=== PATIENT | male | born 1955 | race Caucasian/White ===

== ENCOUNTER 2018-04-19 11:02 | Inpatient (IN) | payer MEDICAID ==
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
[2018-04-19] MEDS ORDERED: IPRATROPIUM/ALBUTEROL 3 ML DEYVIAL IH ONE (11:49)
[2018-04-19] MEDS ORDERED: OSELTAMIVIR PHOSPHATE 75 MG CAP PO ONE (12:04)
[2018-04-19] MEDS ORDERED: NS 1,000 ML IV ONE (12:40)
[2018-04-19] MEDS ORDERED: ONDANSETRON 4 MG/2 ML VIAL IVP PRN (14:01)
[2018-04-19] MEDS ORDERED: ONDANSETRON DISINTEGRATING 4 MG TAB PO PRN (14:01)
[2018-04-19] MEDS ORDERED: ACETAMINOPHEN 325 MG TAB PO PRN (14:01)
--- NOTE | 2018-04-19 14:26 | PDGENHP ---
<Yolette Shrestha - Last Filed: 04/19/18 14:29> History and Physical - Chief Complaint Shortness of breath, productive cough - History of Present Illness This is a 63 y/o patient who was evaluated at urgent care for 5 days worth of worsening productive cough, shortness of breath, fevers and chills. He produces greenish and yellowish sputum. He does have a history of COPD and does not need supplemental oxygen however he does have it available to him should he ever need it. He denies nausea, vomiting, chest pains, and palpitations. He tested positive for Influenza A; he is being admitted for monitoring and treatment of Influenza and increased shortness of breath. Past Medical History 1. COPD (not oxygen dependent) 2. Bilateral inguinal hernias Past Surgical History 1. Left hernia repair. Was scheduled for right hernia repair today but needed to cancel Social 1. Unable to work because of COPD 2. Currently living with friends in [facility] 3. Denies illicit drug use. Drinks 2 beers/week. Stopped smoking cigarettes 4 days ago "for good." Prior to that, he smoked about 10 cigarettes/day. History Information - Allergies/Home Medication List Allergies/Adverse Reactions: Sulfa (Sulfonamide Antibiotics) Allergy (Verified 04/19/18 12:05) Home Medications: Albuterol [Proventil Inhaler HFA (*)] 1 - 2 puffs IH Q4H PRN 04/19/18 [Last Taken 04/19/18] Fluticasone/Salmeter 500/50Mcg [Advair 500/50 (*)] 1 puffs IH BID 04/19/18 [ Last Taken 04/18/18 20:00] I have personally reviewed and updated: family history, medical history, social history, surgical history Past Medical History: See HPI list - Surgical History Additional surgical history: See HPI list - Family History Positive for: non-pertinent - Social History Smoking Status: Heavy smoker Alcohol Use: Rarely Drug Use: None Review of Systems Review of Systems: ROS: 10pt was reviewed & negative except for what was stated in HPI & below Constitutional: Reports: chills, fever, malaise EENMT: Reports: no symptoms Cardiac: Reports: other Respiratory: Reports: cough, shortness of breath Gastrointestinal: Reports: no symptoms Genitourinary: Reports: no symptoms Muscolosketal: Reports: no symptoms Skin: Reports: no symptoms Neurological: Reports: no symptoms Hematologic/Lymphatic: Reports: no symptoms Immunologic/Allergy: Reports: other (Sulfa) Physical Exam Physical Exam: Lab data and imaging reviewed CXR: suspect lower lobe infiltrates, right greater than left. COPD/emphysema with chronic pulmonary arterial hypertension. WBC: 8.6 RBC/H/H: 5.25/17.7/51.2 PLT: 220 Na: 132 K: 4.0 BUN/Creatinine: 6/0.7 Lactic acid: 1.2 Temp Pulse Resp BP Pulse Ox 37.4 C 103 H 14 152/109 H 94 04/19/18 13:59 04/19/18 13:59 04/19/18 13:59 04/19/18 13:59 04/19/18 13:59 O2 (L/minute) 2 Constitutional: no apparent distress, appears nourished, not in pain Eyes: PERRL, anicteric sclera, EOMI Ears, Nose, Mouth, Throat: moist mucous membranes, hearing normal, ears appear normal, no oral mucosal ulcers Cardiovascular: regular rate and rhythym, no murmur, rub, or gallop, tachycardia , No edema Peripheral Pulses: 2+: dorsalis-pedis (R) (Radial 2+), dorsalis-pedis (L) ( Radial 2+) Respiratory: rhonchi (Bilateral lower lobes) Gastrointestinal: normoactive bowel sounds, soft, non-tender abdomen, no palpable masses Genitourinary: no bladder fullness, no bladder tenderness Skin: warm, normal color, no rashes or abrasions, no fluctuance, no induration, No mottled Musculoskeletal: full muscle strength, no muscle tenderness, normal joint ROM, no joint effusions Neurologic: AAOx3, sensation intact bilaterally, CN II-XII Intact Psychiatric: interacting appropriately, not anxious, not encephalopathic, thought process linear Lymph, Heme, Immunologic: no cervical LAD, no supraclavicular LAD Lab Data & Imaging Review POC Sodium 132 mEq/L (135-145) L 04/19/18 11:42 POC Potassium 4.0 mEq/L (3.3-5.0) 04/19/18 11:42 POC Chloride 95.0 mEq/L (97-110) L 04/19/18 11:42 POC Total CO2 25 mEq/L (22-31) 04/19/18 11:42 POC BUN 6 mg/dL (7-23) L 04/19/18 11:42 POC Creatinine 0.7 mg/dL (0.7-1.3) 04/19/18 11:42 POC Glucose 108 mg/dL (70-100) H 04/19/18 11:42 POC Lactic Acid Garrett 1.2 mmol/L (0.7-2.1) 04/19/18 11:43 POC Calcium 9.3 mg/dL (8.5-10.4) 04/19/18 11:42 POC Total Bilirubin 1.1 mg/dL (0.1-1.4) 04/19/18 11:42 POC AST 27 IU/L (17-59) 04/19/18 11:42 POC ALT 24 IU/L (21-72) 04/19/18 11:42 POC Alk Phosphatase 68 IU/L (38-126) 04/19/18 11:42 POC Total Protein 7.1 g/dL (6.3-8.2) 04/19/18 11:42 POC Albumin 3.7 g/dL (3.5-5.0) 04/19/18 11:42 Assessment & Plan Plan: 63 y/o male presenting with worsening shortness of breath and productive cough tests positive for influenza A. 1. Influenza A: Pt reports his friends (who he is currently living with) are sick with either cold or flu symptoms -Droplet precautions -Tamiflu was initiated at urgent care and he received one dose. He will receive another dose later today and continue BID for the next 5 days. 2. Acute COPD exacerbation on chronic COPD: suspect influenza and chronic cigarette use triggered an exacerbation. He is tachycardic and hypoxemic requiring 2L NC at the moment -Received duoneb treatment at urgent care; he will continue to receive scheduled duoneb treatments 3. Viral pneumonitis: CXR show infiltrates, most likely viral considering he is currently afebrile, lactic acid 1.2 and WBC 8.6. -Checking procalcitonin; if elevated, will initiate antibiotics -Will check CBC/BMP tomorrow 4. Tobacco cessation: counseled pt on cessation. He reportedly already has 4 days ago "for good," but I reiterated the importance to him. 5. COPD: will hold home inhalers for now. He will be receiving scheduled duoneb treatments. Diet: Regular VTE ppx: Lovenox subq Code: Full Dispo: admit to obs <Zackary Howard - Last Filed: 04/19/18 16:47> History and Physical - History of Present Illness Review of Systems Review of Systems: Physical Exam Physical Exam: Temp Pulse Resp BP Pulse Ox 37.4 C 110 H 14 157/108 H 92 04/19/18 16:00 04/19/18 16:00 04/19/18 16:00 04/19/18 16:00 04/19/18 16:00 O2 (L/minute) 2 Lab Data & Imaging Review POC Sodium 132 mEq/L (135-145) L 04/19/18 11:42 POC Potassium 4.0 mEq/L (3.3-5.0) 04/19/18 11:42 POC Chloride 95.0 mEq/L (97-110) L 04/19/18 11:42 POC Total CO2 25 mEq/L (22-31) 04/19/18 11:42 POC BUN 6 mg/dL (7-23) L 04/19/18 11:42 POC Creatinine 0.7 mg/dL (0.7-1.3) 04/19/18 11:42 POC Glucose 108 mg/dL (70-100) H 04/19/18 11:42 POC Lactic Acid Garrett 1.2 mmol/L (0.7-2.1) 04/19/18 11:43 POC Calcium 9.3 mg/dL (8.5-10.4) 04/19/18 11:42 POC Total Bilirubin 1.1 mg/dL (0.1-1.4) 04/19/18 11:42 POC AST 27 IU/L (17-59) 04/19/18 11:42 POC ALT 24 IU/L (21-72) 04/19/18 11:42 POC Alk Phosphatase 68 IU/L (38-126) 04/19/18 11:42 POC Total Protein 7.1 g/dL (6.3-8.2) 04/19/18 11:42 POC Albumin 3.7 g/dL (3.5-5.0) 04/19/18 11:42 Assessment & Plan Assessment: Chronic obstructive pulmonary disease with acute exacerbation (Acute) Influenza A (Acute) Plan: I have reviewed the chart and personally examined the patient. Discussed with Dunia Shrestha NP and agree with her plan as outlined above. Please see separate note for further details.
[2018-04-19] MEDS: IPRATROPIUM/ALBUTEROL 3 ML DEYVIAL IH SCH ×2 (15:25→21:26)
[2018-04-19] MEDS ORDERED: NS 1,000 ML IV SCH (16:45)
[2018-04-19] MEDS: predniSONE 20 MG TAB PO SCH (16:50)
[2018-04-19] MEDS: OSELTAMIVIR PHOSPHATE 75 MG CAP PO SCH (16:50)
--- NOTE | 2018-04-19 16:54 | HOSPPROG ---
Hospitalist Progress Note Assessment/Plan: Case discussed with Dunia Shrestha ADVISOR [employer] and I agree with her plan with the following exceptions: Briefly, 63yo M smoker here with 5 days of progressive shortness of breath, cough, chills, myalgias found to be hypoxic and influenza A +. Transferred from [facility] for further care. Symptoms started last Thursday. Typically doesn't use oxygen. Smokes 1/2 pack cigarettes/day. Multiple sick contacts. Reviewed labs, notable for Na 132. CXR shows mild bibasilar infiltrates. Exam notable for wheezing with prolonged expiratory phase. Plan: 1. Acute exacerbation of COPD: Viral trigger - Prednisone 40mg qd, scheduled duonebs 2. Acute hypoxemic respiratory insufficiency: Requiring 2L NC - Wean as able 3. Influenza A infection - Tamiflu x5 days (will give despite being out of 2 day "window") 4. Hyponatremia: Hypovolemic - Give additional 1L NS 5. Tobacco use: Encouraged cessation VTE ppx: LMWH Dispo: Admit under observation Objective: Vital Signs Temp Pulse Resp BP Pulse Ox 37.4 C 110 H 14 157/108 H 92 04/19/18 16:00 04/19/18 16:00 04/19/18 16:00 04/19/18 16:00 04/19/18 16:00 04/18/18 04/19/18 04/20/18 05:59 05:59 05:59 Intake Total 1240 Balance 1240 ICD10 Worksheet Patient Problems: Problems Problem Status Onset Chronic obstructive pulmonary disease with acute exacerbation Acute Influenza A Acute
[2018-04-20] MEDS: IPRATROPIUM/ALBUTEROL 3 ML DEYVIAL IH SCH ×4 (05:55→20:10)
[2018-04-20] MEDS ORDERED: BENZONATATE 100 MG CAP PO PRN (08:49)
--- NOTE | 2018-04-20 08:52 | HOSPPROG ---
Hospitalist Progress Note Assessment/Plan: 63yo M smoker here with 5 days of progressive shortness of breath, cough, chills , myalgias found to be hypoxic and influenza A +. 1. Acute exacerbation of COPD: Viral trigger - Prednisone 40mg qd, continue scheduled duonebs 2. Acute hypoxemic respiratory insufficiency: Requiring 2-3L NC, still with desats - Wean as able, likely will need home O2 at discharge 3. Influenza A infection - Tamiflu x5 days (will give despite being out of 2 day "window") 4. Hyponatremia: Hypovolemic, improving - Recheck tomorrow 5. Tobacco use: Encouraged cessation 6. Polycythemia: Hgb 17-18. Suspect r/t chronic hypoxemia from smoking but will check bone marrow etiology - Check JAK2 mutation VTE ppx: LMWH Dispo: Switch to inpatient, still hypoxic and symptomatic and unsafe for dc. Possible dc tomorrow with supplemental O2 Subjective: Lots of coughing this AM. Still with some labored breathing, especially with walking. O2 levels intermittently in 80s while on O2. Objective: Vital Signs Temp Pulse Resp BP Pulse Ox 36.4 C 93 18 159/108 H 91 L 04/20/18 08:00 04/20/18 08:00 04/20/18 08:00 04/20/18 08:00 04/20/18 08:00 Laboratory Results 04/20/18 06:00 04/20/18 06:00 04/19/18 04/20/18 04/21/18 05:59 05:59 05:59 Intake Total 2039 Output Total 2850 300 Balance -810 -300 - Physical Exam Constitutional: no apparent distress, appears nourished, not in pain Eyes: PERRL, anicteric sclera, EOMI Ears, Nose, Mouth, Throat: moist mucous membranes, hearing normal, ears appear normal, no oral mucosal ulcers Cardiovascular: no murmur, rub, or gallop, tachycardia, No edema Respiratory: no respiratory distress, reduced air movement, expiratory wheeze, rhonchi, No inspiratory crackles Gastrointestinal: normoactive bowel sounds, soft, non-tender abdomen, no palpable masses Genitourinary: no bladder fullness, no bladder tenderness, no renal bruits Skin: no rashes or abrasions, no fluctuance, no induration Musculoskeletal: full muscle strength, no muscle tenderness, normal joint ROM Neurologic: AAOx3, sensation intact bilaterally Psychiatric: interacting appropriately, not anxious, not encephalopathic, thought process linear ICD10 Worksheet Patient Problems: Problems Problem Status Onset Chronic obstructive pulmonary disease with acute exacerbation Acute Influenza A Acute
[2018-04-20] MEDS: OSELTAMIVIR PHOSPHATE 75 MG CAP PO SCH ×2 (10:17→18:21)
[2018-04-20] MEDS: guaiFENesin 600 MG TAB.ER PO SCH ×2 (10:17→20:44)
[2018-04-20] MEDS: ENOXAPARIN 40 MG/0.4 ML SYR SC SCH (10:17)
[2018-04-20] MEDS: predniSONE 20 MG TAB PO SCH (10:17)
--- NOTE | 2018-04-20 15:10 | PDMN ---
Medical Necessity Medical necessity: [facility] [place] M100 COPD: 63 yo w/ cough/sob/fever/chills. Workup reveals +influenza A w/ acute COPD exacerbation and viral pneumonitis. Initially OBS for monitoring/tx but pt cont w/ s/sx - labored breathing, tachycardic, remains on O2 requiring additional MN. Cont IVF, nebs, steroids. Hx COPD. Change to IP status 04/20/18@1433 per MD order
--- NOTE | 2018-04-20 16:57 | ASMTCMCOM ---
CM Note CM Note Notes: Discussed case with MD who feels patient needs at least another day in house before d/c. Met with patient to discuss any possible dispo needs. Patient states he's been staying with some friends in [place] and plans to stay there again upon d/c. He has a PCP in [place] (where he formerly lived). CM encouraged patient to establish care with a PCP here. Information for [facility] PCPs provided and added to discharge plan in [facility]. Referral sent to [facility] Samara Orellana was able to follow-up today and provide information. Plan: Anticipate d/c to friend's home when medically stable. May need assistance with bus ride to [place]. Date Signed: 04/20/2018 04:57 PM Electronically Signed By:Lara Lou RN
[2018-04-21] MEDS: IPRATROPIUM/ALBUTEROL 3 ML DEYVIAL IH SCH (05:39)
[2018-04-21] MEDS: OSELTAMIVIR PHOSPHATE 75 MG CAP PO SCH (08:02)
[2018-04-21] MEDS: predniSONE 20 MG TAB PO SCH (08:02)
[2018-04-21] MEDS: guaiFENesin 600 MG TAB.ER PO SCH (08:02)
[2018-04-21] MEDS: ENOXAPARIN 40 MG/0.4 ML SYR SC SCH (08:03)
[2018-04-21 08:14] VITALS: BP 147/99
--- NOTE | 2018-04-21 08:55 | PDHOMEO2F ---
Home Oxygen Face to Face Home Orders: I certify that a physician or a nurse practitioner or physician's social service assistant has had a [id number] encounter with this patient on the date of this order due to the diagnosis listed, which relates to the primary reason the patient requires home oxygen. Alternative treatments have been tried, or considered, and deemed ineffective. It is anticipated that supplemental oxygen will result in improvement with treatment. Home oxygen qualifying diagnosis: respiratory failure with hypoxia SpO2 on room air (%): 87 Frequency of home oxygen needed: continuous Home oxygen liters per minute: 2 Home oxygen delivery device: nasal cannula Concentrator: Yes E-tanks for mobility and back up: Yes If ordering portable O2, is the patient mobile in the home?: Yes I certify that, based on these findings, the home oxygen is medically necessary for this patient for the following length of time. Length of time home oxygen needed: 3 months
--- NOTE | 2018-04-21 09:41 | PDDCSUM ---
Discharge Summary Discharge Summary: Date of Admission: 04/19/2018 Date of Discharge: 04/21/2018 Studies: 1. CXR Discharge Diagnoses: 1. Acute COPD exacerbation, due to 2. Influenza A infection, complicated by 3. Acute hypoxemic respiratory failure 4. Hypovolemic hyponatremia 5. Ongoing tobacco use 6. Polycythemia 7. Homelessness Brief Hospital Course: 63yo M smoker here with 5 days of progressive shortness of breath, cough, chills , myalgias found to be hypoxic and wheezing. Influenza A testing was positive. He was treated with bronchodilators, steroids, and tamiflu with symptomatic improvement. He was requiring supplemental oxygen and is discharged on 2L/min continuously. I strongly advised that he quit smoking, and he seems motivated. He has equipment for a nebulizer at home and is on albuterol and advair for his COPD. His hematocrit was elevated when he came in, and I suspect he is chronically hypoxic. Medications: Please refer to EMR for complete list. Prescriptions for the following were sent to his pharmacy: 1. Prednisone 40mg QD x4 more days 2. Tamiflu 75mg BID x3 more days 3. Mucinex and tessalon pearls PRN Follow Up Plan: 1. JAK2 mutation pending at discharge 2. Needs to establish with PCP locally (currently lives in [place] with friend but has PCP in [place]). They should assess ongoing need for supplemental oxygen. Physical Exam: Vitals reviewed, afebrile. Alert and oriented, RRR without m/r/g , lungs with improving aeration and minimal wheezing, no respiratory distress, abdomen soft and nt, no leg edema, no rashes.
== END 2018-04-21 10:44 | disposition home or self-care (01) | DRG 140 ==
LOC: CED 11:02 → CEDHOLD 12:07 → F3E 13:52 → OBSVTOIN 04-20 14:33
PROVIDERS: ADMIT Internal Medicine; ATTEND Internal Medicine
DX: J44.1 Chronic obstructive pulmonary disease with (acute) exacerbation (principal); J10.1 Influenza due to other identified influenza virus with other respiratory manifestations; J96.01 Acute respiratory failure with hypoxia; E87.1 Hypo-osmolality and hyponatremia; E86.1 Hypovolemia; D75.1 Secondary polycythemia; Z72.0 Tobacco use; Z59.0 Homelessness; K40.90 Unilateral inguinal hernia, without obstruction or gangrene, not specified as recurrent
CPT/HCPCS: 71046-PO; 80053-ER; 81439-90; 83605-ER; G0378; J1650; J7512

== ENCOUNTER 2018-07-20 13:39 | Inpatient (IN) | payer MEDICAID ==
[2018-07-20] MEDS ORDERED: LR 1,000 ML IV ONE (13:47)
[2018-07-20] MEDS ORDERED: BUPIVACAINE/EPI 0.25% 30 ML SDV ONE (13:52)
[2018-07-20] MEDS ORDERED: LIDO/EPI 1% **Not for Epidural 20 ML MDV ONE (13:52)
--- NOTE | 2018-07-20 14:51 | PDHPUP ---
History & Physical Update H&P update statement: This history and physical update is based on an assessment of the patient which was completed after admission or registration (within 24 hours), but prior to the surgery/procedure. H&P update: H&P reviewed & patient examined, no change in patient's condition since H&P completed
--- NOTE | 2018-07-20 14:54 | POSTOPPROG ---
Post Op Note Date of Operation: 07/20/18 Surgeon: Yo Rosales Chief Operations Officer: Vanna Ulloa PA-C Anesthesia: IV Sedation Pre-op Diagnosis: Right inguinal hernia Post-op Diagnosis: same Procedure: Open right inguinal herniorrhaphy Inf/Abcess present in the surg proc area at time of surgery?: No EBL: Minimal Complications: no immediate
[2018-07-20] MEDS ORDERED: ASPIRIN 325 MG TAB PO ONE (15:10)
[2018-07-20] MEDS ORDERED: ASPIRIN 325 MG TAB ONE (15:11)
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
--- NOTE | 2018-07-20 15:57 | CPEKG ---
Test Reason : OPEN Blood Pressure : / mmHG Vent. Rate : 092 BPM Atrial Rate : 092 BPM P-R Int : 134 ms QRS Dur : 094 ms QT Int : 420 ms P-R-T Axes : 079 066 058 degrees QTc Int : 520 ms Sinus rhythm Abnormal T, consider ischemia, anterior leads Prolonged QT interval Confirmed by Talon Nieto ([id number]) on 07/20/2018 3:57:05 PM Referred By: CLEO SIMON Confirmed By:Talon Nieto
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
[2018-07-20 16:13] LABS: PLATELET COUNT 159 10^3/uL (150-400)
--- NOTE | 2018-07-20 16:53 | CPEKG ---
Test Reason : OPEN Blood Pressure : / mmHG Vent. Rate : 096 BPM Atrial Rate : 096 BPM P-R Int : 130 ms QRS Dur : 095 ms QT Int : 409 ms P-R-T Axes : 077 075 -46 degrees QTc Int : 517 ms Sinus rhythm Abnormal T, consider ischemia, anterior leads Prolonged QT interval Confirmed by Talon Nieto ([id number]) on 07/20/2018 4:53:15 PM Referred By: Talon Nieto Confirmed By:Talon Nieto
[2018-07-20] MEDS ORDERED: ONDANSETRON 4 MG/2 ML VIAL IVP PRN (17:51)
[2018-07-20] MEDS ORDERED: ACETAMINOPHEN 325 MG TAB PO PRN (17:51)
[2018-07-20] MEDS ORDERED: ONDANSETRON DISINTEGRATING 4 MG TAB PO PRN (17:51)
[2018-07-20] MEDS ORDERED: LORazepam 2 MG/ML INJ IVP PRN (17:53)
[2018-07-20] MEDS ORDERED: FLUMAZENIL 0.5 MG/5 ML MDV IVP PRN (17:53)
--- NOTE | 2018-07-20 18:05 | PDGENHP ---
History and Physical - Chief Complaint EKG changes, hypertension - History of Present Illness 63 y/o male w/hx of alcohol, illicit and tobacco abuse presented for an elective open hernia repair however during pre-op, his BP was elevated at 170 systolic and subsequently an EKG was performed w/no others on records to compare indicating anterior T-wave inversions but was asymptomatic. He reported anxiety attacks leading up to surgery and felt anxious today. Surgery was cancelled and he was transferred to ED for further evaluation. He tells me approximately 5 days ago, he was short of breath to the point that it woke him up and he felt diaphoretic. No CP, palpitations, nausea, vomiting, radiating pain, HOWELL. Symptoms dissipated after 10 minutes. Occurred twice within the same night. No hx of cardiac related issues, no family hx. He does drink heavily w/reported "couple of beers and a couple of shooters" per day, smokes 1/ 2 pack of cigarettes weekly, and smokes crystal methamphetamine monthly w/ friends. He is currently homeless and staying w/friends in [place]. He is being admitted for further work-up, treatment and monitoring. History Information - Allergies/Home Medication List Allergies/Adverse Reactions: Sulfa (Sulfonamide Antibiotics) Allergy (Verified 07/20/18 15:29) Rash Home Medications: Albuterol [Proventil Inhaler HFA (*)] 1 - 2 puffs IH Q4H PRN 04/19/18 [Last Taken 04/19/18] Fluticasone/Salmeter 500/50Mcg [Advair 500/50 (*)] 1 puffs IH BID 04/19/18 [ Last Taken 04/18/18 20:00] I have personally reviewed and updated: family history, medical history, social history, surgical history Past Medical History: Bilateral inguinal hernias - Past Medical History COPD - Surgical History Additional surgical history: Left hernia repair. Was scheduled today for right hernia repair - Family History Positive for: lung disease (Mother) Additional family history: Father from alcoholism - Social History Smoking Status: Heavy smoker Tobacco Use: Cigarettes, Less than 1 pack/day Alcohol Use: Heavy ("A couple of beers and a couple of shooters"/day) Drug Use: Other (Crystal meth - smokes monthly) Additional social history: Homeless, lives w/friends in [place] Review of Systems Review of Systems: ROS: 10pt was reviewed & negative except for what was stated in HPI & below Physical Exam Physical Exam: Lab data and imaging reviewed. White blood count: 9.07 Hemoglobin hematocrit: 17.1 and 49.6 Platelet count: 159 Sodium: 134 Potassium: 3.7 Chloride: 102 Carbon dioxide: 26 BUN/Cr: 9/0.6 Troponin: 0.041 EKG: See HPI Chest x-ray: Suspect COPD and or airway disease with no superimposed acute abnormality identified, possible pulmonary arterial hypertension Temp Pulse Resp BP Pulse Ox 37.3 C 93 18 143/106 H 93 07/20/18 15:25 07/20/18 17:35 07/20/18 17:35 07/20/18 17:35 07/20/18 17:35 O2 (L/minute) 1 Constitutional: no apparent distress, appears nourished, not in pain Eyes: PERRL, anicteric sclera, EOMI Ears, Nose, Mouth, Throat: moist mucous membranes, hearing normal, ears appear normal, no oral mucosal ulcers Cardiovascular: no murmur, rub, or gallop, tachycardia Peripheral Pulses: 1+: dorsalis-pedis (R), dorsalis-pedis (L) Respiratory: reduced air movement Gastrointestinal: normoactive bowel sounds, soft, non-tender abdomen, no palpable masses Genitourinary: no bladder fullness, no bladder tenderness Skin: warm, normal color, no rashes or abrasions, no fluctuance, no induration, No mottled Musculoskeletal: full muscle strength, no muscle tenderness, normal joint ROM, no joint effusions Neurologic: AAOx3, sensation intact bilaterally, CN II-XII Intact Psychiatric: interacting appropriately, not anxious, not encephalopathic, thought process linear Lymph, Heme, Immunologic: no cervical LAD, no supraclavicular LAD Lab Data & Imaging Review 07/20/18 16:05 07/20/18 16:05 WBC 9.07 10^3/uL (3.80-9.50) 07/20/18 16:05 RBC 4.94 10^6/uL (4.40-6.38) 07/20/18 16:05 Hgb 17.1 g/dL (13.7-17.5) 07/20/18 16:05 Hct 49.6 % (40.0-51.0) 07/20/18 16:05 MCV 100.4 fL (81.5-99.8) H 07/20/18 16:05 MCH 34.6 pg (27.9-34.1) H 07/20/18 16:05 MCHC 34.5 g/dL (32.4-36.7) 07/20/18 16:05 RDW 14.5 % (11.5-15.2) 07/20/18 16:05 Plt Count 159 10^3/uL (150-400) 07/20/18 16:05 MPV 9.5 fL (8.7-11.7) 07/20/18 16:05 Neut % (Auto) 64.9 % (39.3-74.2) 07/20/18 16:05 Lymph % (Auto) 23.8 % (15.0-45.0) 07/20/18 16:05 [place] % (Auto) 9.7 % (4.5-13.0) 07/20/18 16:05 Eos % (Auto) 0.6 % (0.6-7.6) 07/20/18 16:05 Baso % (Auto) 0.6 % (0.3-1.7) 07/20/18 16:05 Nucleat RBC Rel Count 0.0 % (0.0-0.2) 07/20/18 16:05 Absolute Neuts (auto) 5.89 10^3/uL (1.70-6.50) 07/20/18 16:05 Absolute Lymphs (auto) 2.16 10^3/uL (1.00-3.00) 07/20/18 16:05 Absolute Monos (auto) 0.88 10^3/uL (0.30-0.80) H 07/20/18 16:05 Absolute Eos (auto) 0.05 10^3/uL (0.03-0.40) 07/20/18 16:05 Absolute Basos (auto) 0.05 10^3/uL (0.02-0.10) 07/20/18 16:05 Absolute Nucleated RBC 0.00 10^3/uL (0-0.01) 07/20/18 16:05 Immature Gran % 0.4 % (0.0-1.1) 07/20/18 16:05 Immature Gran # 0.04 10^3/uL (0.00-0.10) 07/20/18 16:05 Sodium 134 mEq/L (135-145) L 07/20/18 16:05 Potassium 3.7 mEq/L (3.5-5.2) 07/20/18 16:05 Chloride 102 mEq/L (97-110) 07/20/18 16:05 Carbon Dioxide 26 mEq/l (22-31) 07/20/18 16:05 Anion Gap 6 mEq/L (6-14) 07/20/18 16:05 BUN 9 mg/dL (7-23) 07/20/18 16:05 Creatinine 0.6 mg/dL (0.7-1.3) L 07/20/18 16:05 Estimated GFR > 60 07/20/18 16:05 Glucose 89 mg/dL (70-100) 07/20/18 16:05 Calcium 8.8 mg/dL (8.5-10.4) 07/20/18 16:05 POC Troponin I 0.04 ng/mL (0.00-0.08) 07/20/18 16:08 Troponin I 0.041 ng/mL (0.000-0.034) H 07/20/18 16:05 Assessment & Plan Plan: This is a 63-year-old male with heavy alcohol, illicit, and tobacco drug abuse who presented for an elective open hernia repair. Preoperatively it was noted he had high blood pressure, an EKG was performed which revealed anterior T-wave inversions. He was asymptomatic during this time but reportedly felt anxious the days leading up to the surgery. He reports to me 5 days prior he felt so short of breath that woke him up and he felt diaphoretic; he described the feeling as being really excited for something. It resolved within 10 min however he experienced it 1 more time at night. His last set of vitals are the following: Blood pressure 160/106, heart rate 95, respirations 16, temperature 37.3 degrees, oxygen saturation on room air 90%. Differential diagnosis ACS, pleuritic pain, PE. #EKG changes, prior symptoms of SOB and diaphoresis -Cards consulted; I spoke w/ [employer] Jhonysatinder Leal who will evaluate the pt in the AM -Initial troponin elevated 0.041; cycle Q6H x 2 -EKG change w/TWI but no baseline to compare; cycle EKG Q6H after ED one was performed and then PRN if symptomatic -Cont tele/PCU monitoring -Lipid panel in AM -Echo complete in AM -D-dimer pending; if significantly elevated, low threshold to order chest CTA to r/o PE #Illicit drug use -Reportedly smokes crystal methamphetamine monthly -Urine tox screen pending; illicit drug use could certainly cause EKG changes and symptoms noted above #Alcohol abuse disorder -Last reported drink was Thursday -CIWA scale initiated -Thiamine bolus + PO -Case management consulted #Tobacco cessation -Was admitted here in Mar 2018 for COPD exacerbation and influenza; at that time quit smoking all together -Reports he struggles to quit but did manage to cut down from a pack of cigarettes to 1/2 a pack per week -Encouraged pt to continue to reduce and/or stop smoking #COPD -He does have supplemental oxygen however it is still located at his ex- girlfriend's house in [place]; he feels like he doesn't need it -Cont home inhalers Diet: Cardiac, NPO at midnight tonight VTE PPX: SCDs Code: Full Dispo: Admit to observation
[2018-07-20] MEDS: THIAMINE HCL 500 MG in NS 100 ML IV SCH (18:34)
[2018-07-20] MEDS ORDERED: IPRATROPIUM/ALBUTEROL 3 ML DEYVIAL IH PRN (19:04)
[2018-07-20] MEDS ORDERED: hydrALAZINE 20 MG/ML VIAL IVP PRN (19:05)
[2018-07-20] MEDS ORDERED: ALBUTEROL SULFATE IH PRN (19:05)
[2018-07-20] MEDS ORDERED: ALBUTEROL 60 PUFFS/8 GM MDI IH PRN (19:15)
[2018-07-20] MEDS ORDERED: IOPAMIDOL (ISOVUE 370) 100 ML BTL IV ONE (19:21)
--- NOTE | 2018-07-20 19:24 | GHP ---
[f rep st] HISTORY AND PHYSICAL DATE OF ADMISSION: 07/20/2018 CHIEF COMPLAINT: 1. Hypertension. 2. New T-wave inversions. HISTORY OF PRESENT ILLNESS: A 63-year-old male with alcohol dependence, tobacco , and methamphetamine abuse, who presented for an elective open hernia repair today, but was found to be hypertensive in preop to systolic blood pressure of 170. Subsequent EKG was performed that showed new anterior lead T-wave inversions. I evaluated patient with Yolette Shrestha NP. I reviewed her H and P, and agree except as noted below. He has had 2 episodes within the last 2 weeks, in which he felt short of breath after exertion. He gets up in the middle of the night to go the restroom and when he comes back he feels his heart racing and short of breath, but denies chest pain. He says he is always short of breath due to his COPD. He does not use oxygen. He denies overt chest pain. No lower extremity or abdominal swelling. Last used meth a month and a half ago. Smokes a pack of cigarettes in 5 days. Drinks a couple shooters a day, last on Thursday. Initial troponin was 0.04. Repeat was normal. EKG showing T-wave inversions. REVIEW OF SYSTEMS: I completed a 10-point review of systems, negative except as noted in HPI. PAST MEDICAL HISTORY: Alcohol dependence. PAST SURGICAL HISTORY: Hernia repair. SOCIAL HISTORY: Homeless. [place] the streets. Drinks 2 shooters a day. Smokes a pack of cigarettes every 5 days. Last meth use was a month and a half ago. FAMILY HISTORY: Mother with lung disease. Father was alcoholic. MEDICATIONS: Home medications: None. ALLERGIES: None. PHYSICAL EXAMINATION: VITAL SIGNS: Temperature 37.3, initial blood pressure 172/123, now 143/106, heart rate 90s to 100s, respirations 18, 93% on room air. GENERAL: No acute distress. HEENT: Cry mucous membranes. CV: Tachy but regular. No lower extremity edema. LUNGS: Diminished throughout. Poor air movement. No crackles or wheezing. ABDOMEN: Soft, nontender, nondistended. : No [place]. MUSCULOSKELETAL: 5/5 upper lower extremity strength. NEURO: 2 through 12 intact. Positive hand tremors. No tongue fasciculations. PSYCH: He is alert and oriented x3. LABS: U tox pending. Sodium 134, potassium 3.7, chloride 102, carbon dioxide 26, creatinine 0.6. Troponin 0.041, repeat 0.04. WBC 9, hemoglobin 17, hematocrit 49, MCV is 100, platelets 159. EKG personally reviewed by me, anterior lead T-wave inversion. Chest x-ray: Hyperexpanded, no opacity or effusion. ASSESSMENT AND PLAN: 1. New T-wave inversions: Differential includes coronary artery disease, illicit drugs, pulmonary embolus. Initial troponin minimally elevated at 0.04. Urine tox pending. CTA is pending with elevated dimer_. Echo in the morning. Cardiology will see tomorrow. 2. Alcohol dependence. CIWA. 3. Hypertensive urgency: May be due to withdrawal, will treat and monitor, p.r.n. hydralazine. 4. Suspected chronic obstructive pulmonary disease: Very tight on exam. DuoNeb's. No evidence of exacerbation. 5. Tobacco abuse: Nicotine patch. /[id number]/MODL MTDD
[2018-07-20] MEDS ORDERED: IPRATROPIUM BROMIDE 0.5 MG/2.5 ML DEYVIAL IH PRN (19:27)
[2018-07-20] MEDS ORDERED: LEVALBUTEROL 0.63 MG/3 ML DEYVIAL IH PRN (19:27)
[2018-07-20] MEDS: FLUTICASONE/SALMETER 500/50MCG DISKUS IH SCH (22:04)
[2018-07-21] MEDS: LOSARTAN POTASSIUM 50 MG TAB PO SCH (08:52)
[2018-07-21] MEDS: ASPIRIN 81 MG CHEWABLE TAB PO SCH (08:52)
[2018-07-21] MEDS: THIAMINE HCL 500 MG in NS 100 ML IV SCH (08:53)
[2018-07-21] MEDS: ALBUTEROL HFA 200 PUFFS/8.5 GM MDI IH PRN ×2 (08:53→19:58)
[2018-07-21] MEDS ORDERED: amLODIPine BESYLATE 5 MG TAB PO SCH (09:00)
[2018-07-21] MEDS: FLUTICASONE/SALMETER 500/50MCG DISKUS IH SCH ×2 (09:27→20:00)
--- NOTE | 2018-07-21 09:52 | GCON ---
[f rep st] CONSULTATION CARDIOLOGY CONSULTATION REFERRING PHYSICIAN: Keerthi Yun MD INDICATION FOR CARDIOLOGY CONSULTATION: Abnormal electrocardiogram , indeterminate troponin levels. HISTORY OF PRESENT ILLNESS: The patient is a pleasant 63-year-old male. He reports no significant c ardiac history. He does state history of COPD , alcohol use, illicit tobacco abuse. He was recently found to have a hernia, and was planning to undergo elective open hernia repair. Yesterday afternoo n, as part of his preop workup, he did have an EKG done, which did note T-wave inversion in anterior leads. He was also noted to be extremely hypertensive with systolic at 170. Due to this, he was sen t to the emergency department for further evaluation. Upon arrival, electrocardiogram was repeated, which showed no significant change. Chest x-ray was performed that showed potential COPD and airway disease and possible pulmonary artery hypertension. Laboratory studies were drawn, which noted to driver ve an indeterminate troponin level of 0.041 with a D-dimer of 1.16. He did undergo CTA of the chest which ruled him out for pulmonary embolism. He states he always is mildly short of breath. Does not feel like this has worsened in the last few weeks. Denies any history of chest pain or pressure. D enies any orthopnea, PND, lightheadedness, near-syncope, or syncopal event. He does state that he driver s occasional peripheral edema, which does worsen during the day, but usually improves as he sleeps du ring the night. He reports no significant recent weight gain or loss. Denies any recent fevers, chi lls or night sweats. The patient states that he is homeless, and is currently residing with a friend in [place]. He has significant cardiac risk factors that include age, hypertension, current smoke r. He denies any history of diabetes, peripheral vascular disease, hyperlipidemia, or family histor y of coronary artery disease. PAST MEDICAL HISTORY: Includes COPD, hernia, current smoker, history of methamphetamine use. SURGICAL HISTORY: Previous left hernia repair, was scheduled to undergo right hernia repair. FAMILY HISTORY: Patient reporting Mother having significant COPD. Father from [facility]. SOCIAL HISTORY: The patient reports he is currently homeless, residing with a friend in the [facility]. He states he is a heavy smoker, but has cut back to 1 pack every 6 days. He does state that he d rinks a couple beers and a couple of shooters in a day. He has used crystal meth, usually smokes it once a month. Denies any other illicit drug use. ALLERGIES: Sulfa. HOME MEDICATIONS: Albuterol inhaler b.i.d. 1.25 mg in 3 mL, 1 puff twice daily p.r.n.; Advair 5/50, 1 puff inhaled b.i.d.; albuterol nebulizer b.i.d. p.r.n. REVIEW OF SYSTEMS: A 10-point review of systems done on this patient all negative except as mentione d above. PHYSICAL EXAMINATION: GENERAL: Sitting, medium built, male. He is alert and oriented to person, place, time, and situation. Appears to be under no acute distress at the time of my examinat ion. VITAL SIGNS: Current vital signs are blood pressure 174/115, heart rate of 83, sinus rhythm on the monitor. Respirations are 20, saturating 95% on 2 L nasal cannula. Temperature of 37.1 degrees Celsius. HEENT: Head is normocephalic. Lips and tongue are pink and moist with no signs of cyanosi s. Conjunctivae pink. NECK: Trachea is midline, +2 carotid pulses bilateral. No auscultated bruit s, elevated JVD of 4 to 5 cm above sternal notch at a 45 degree angle. RESPIRATORY: Diminished in b ases with expiratory wheezing. No accessory muscle use, no intercostal muscle retraction noted. CAR DIAC: Regular rate, regular rhythm, S1, S2, no S3, S4, gallops, rubs or murmurs noted. ABDOMEN: So ft, nontender, bowel sounds x4 quadrants, no organomegaly, no palpable masses. SKIN: [place], warm, dr y, no cyanosis, no clubbing, trace peripheral edema bilateral lower extremities. VASCULAR: +2 carot ids bilateral, +2 radials bilateral, +1 dorsal pedal and posterior tibial pulses bilateral. LABORATORY STUDIES: Laboratory studies drawn on admission showed WBC of 9.07, hemoglobin of 17.1, he matocrit of 49.6, platelet count of 159. D-dimer 1.16. Sodium 134, potassium 3.7, chloride 102, CO2 of 26, BUN 9, creatinine 0.9, glucose 89, calcium 8.8. Initial troponin of 0.04 with repeated tropo nins throughout the night of 0.041, 0.039, and 0.038 this morning. Tox screen done yesterday all neg ative. Fasting lipid panel done this morning showing triglycerides of 61, total cholesterol 123, LDL 43, HDL of 68. STUDIES: Electrocardiogram as mentioned above. Chest x-ray as mentioned above. CTA of chest as men tioned above. Preliminary echocardiogram that is being done on him at this time showing normal LV sy stolic function with EF around 50% with no wall motion abnormalities. ASSESSMENT AND PLAN: 1. New T-wave inversions with indeterminate troponins: Patient reports no history of chest pain or pressure. Does report ongoing shortness of breath, noted to have elevated D-dimer with negative CTA for pulmonary embolus. Echocardiogram preliminary showing normal left ventricular systolic function with no wall motion abnormalities. The patient noted to have significant hypertension. At this time , patient with multiple cardiac risk factors, concern for always ischemia, but with indeterminate tro ponin levels, I do think potentially his troponin elevation could be due to his ongoing long-standing hypertension and, potentially, his history of illicit drug use. I would recommend that we attempt t o get blood pressure controlled first, then consider doing stress testing by, if possible, ETT/MPI [facility]. 2. Hypertension: Patient currently with a systolic greater than 170 and diastolic greater than 100, he has not had any p.r.n. hydralazine as of his hospitalization. His renal function is within maeve l limits, I would like to start him on losartan at 50 mg p.o. this morning, and use p.r.n. hydralazin e, we will potentially need to titrate his medications as seen fit. 3. Chronic obstructive pulmonary disease: Patient noted with mild expiratory wheezing with diminish ed bases. Chest x-ray suggests obstructive disease. The patient has been started on DuoNebs. I def er treatment to the hospital services. 4. Tobacco abuse: We have discussed the importance for him to quit tobacco especially with his lung disease and potentially heart disease. He does state that he is attempting to quit. He currently h as a nicotine patch. 5. Alcohol dependency: Patient does admit drinking at least 5 to 6 drinks in on a nightly basis. H e has been started on the [facility] protocol, defer to hospital services. Thank you for this consultation. We will be glad to follow along with you. /[id number]/MODL
--- NOTE | 2018-07-21 11:19 | ECHO ---
[email or web address] [address] Main: [phone] Echocardiography Examination Transthoracic Name: CARLENE CROOKS MR#: [id number] Study Date: 07/21/2018 Study Time: 08:26 AM Date of : 1955 Age: 63 year(s) Height: 170.2 cm (67 in.) Weight: 70.76 kg (156 lb.) BSA: 1.82 m2 Gender: Male Examination: Echo Contrast: Image Quality: Adequate Rhythm: Heart Rate: BP: 174 mmHg/115 mmHg Indication: Shortness of breath, diaphoretic, EKG changes Procedure Staff Referring Physician: Laboratory Apparatus Glass Grinder: Keerthi Sunshine [facility] Reading Physician: Baron Kumar MD Requesting Provider: Ordering Physician: Yolette Shrestha Indication: Shortness of breath, diaphoretic, EKG changes Measurements Chambers AV/MV Label Value Normal Value Label Value Normal Value LVOTd 2.1 cm (1.9cm - 2.1cm) AV PGmax 6 mmHg LVOT VTI 13.7 cm (18cm - 22cm) AV PGmean 5 mmHg LVDd, 2D 4.9 cm (4.2cm - 5.9cm) AV Vmax 1.21 m/s LVDs, 2D 3.7 cm (2.1cm - 4cm) LARON (VTI) 2 cm2 IVSd, 2D 1.4 cm (0.6cm - 1.1cm) MV E Vmax 0.57 m/s LVPWd, 2D 1.3 cm (0.6cm - 1cm) MV A Vmax 0.53 m/s LVEF, BP 48 % (55% - 70%) MV E/A 1.08 LVEF, 2D 48 % (54% - 74%) MV E/E' lateral 7.3 LVOT PGmean 1 mmHg MV E/E' septal 12 (0.45 - 1.25) LVOT Vmean 0.53 m/s MV DT 176 ms RVDd, 2D 3.6 cm (1.9cm - 3.8cm) MV E' septal 0.05 m/s LA Volume, BP 78 ml (18ml - 58ml) MV PHT 0.06 s LADs, 2D 4 cm (3cm - 4cm) MVA PHT 3.6 cm2 LAESV index, BP 42.9 ml/m2 MR Reg. Volume 33 ml RA Area 20.4 cm2 MR Vmax 5.39 m/s Additional Vessels MR VTI 207 cm Label Value Normal Value MR (ERO) 0.16 cm2 AoAsc 2.8 cm MV E' lateral 0.08 m/s AoRoot, 2D 3.2 cm (1.4cm - 2.6cm) MR PISA Radius 0.6 cm Patient: CARLENE CROOKS Study Date: 07/21/2018 Page 1 of 3 08:26 AM IVC 2.2 cm (1.2cm - 2.3cm) MV E/E' mean 8.77 MR PISA Alias V. 38.5 cm/s MV PHT 61 ms MV E' mean 0.06 m/s TV/PV Label Value Normal Value RA Pressure 12 mmHg RVSP 41 mmHg TR Pmax 29 mmHg TR Vmax 2.71 m/s PV PGmax 1 mmHg PV Vmax, Caliper 0.6 m/s (0.6m/s - 0.9m/s) Conclusions Left Ventricle: CONCLUSIONS:1)Mildly reduced LV systolic function with a LVEF of 48% and no focal wall motion defects.2)Mild to moderate concentric LVH with diastolic dysfunction noted.3)Mild to moderate RV enlargement with mildly reduced RVEF.4)Moderate left atrial and mild right atrial enlargement(s) noted.5)Mild to moderate MR without MV prolapse.6)Mild TR with estimated upper normal PA pressures.7)Elevated CVP of 10-15mmHg. Findings Left Ventricle: Left ventricle is normal in size. CONCLUSIONS: 1)Mildly reduced LV systolic function with a LVEF of 48% and no focal wall motion defects. 2)Mild to moderate concentric LVH with diastolic dysfunction noted. 3)Mild to moderate RV enlargement with mildly reduced RVEF. 4)Moderate left atrial and mild right atrial enlargement(s) noted. 5)Mild to moderate MR without MV prolapse. 6)Mild TR with estimated upper normal PA pressures. 7)Elevated CVP of 10-15mmHg. The ejection fraction, measured by Simpsons method, is 48 %. There is mild to moderate concentric left ventricular hypertrophy. There are no regional wall motion abnormalities. Grade I Diastolic Dysfunction. Left ventricular hypertrophy is noted. Right Ventricle: Mildly to moderately dilated right ventricle. Right ventricular systolic function is mildly reduced. Left Atrium: The left atrium is moderately dilated. Right Atrium: The right atrium is mildly dilated. Mitral Valve: Mitral valve appears structurally normal. Mild to moderate mitral regurgitation. No mitral valve stenosis. Aortic Valve: Aortic leaflets are structurally normal. No significant aortic valve regurgitation. There is no aortic stenosis. Tricuspid Valve: Tricuspid valve leaflets are structurally normal. Mild tricuspid regurgitation. No tricuspid valve stenosis. Right Ventricular systolic pressure is measured at 41 mmHg. Pulmonary artery pressure is upper limits of normal. Pulmonic Valve: Pulmonic valve not well visualized. Aorta: The aortic root size in 2D measures 3.2 cm. The ascending aorta measures 2.8 cm. Aorta Measurements AoRoot, 2D is 3.2 cm. Patient: CARLENE CROOKS Study Date: 07/21/2018 Page 2 of 3 08:26 AM IVC: The inferior vena cava is normal in size. Pericardium: No pericardial effusion. Exam Details Procedure Ordered: Echo Procedure Status: Routine study Image Quality: Adequate Facility Location: Bedside (No Signature Object) Patient: CARLENE CROOKS Study Date: 07/21/2018 Page 3 of 3 08:26 AM [id number]
[2018-07-21] MEDS: HYDROCHLOROTHIAZIDE 12.5 MG CAP PO SCH (11:33)
--- NOTE | 2018-07-21 13:21 | HOSPPROG ---
Hospitalist Progress Note Assessment/Plan: The patient is a 63-year-old male with PMH hernia, anxiety attacks who was admitted for acute chest pain. This patient is new to me. Reviewed patient's chart/records for this visit. ASSESSMENT/PLAN: Acute chest pain, resolved Accelerated hypertension, resolved Prolonged QT interval Diastolic CHF, grade 1 Systolic CHF with EF 48% Mild LVH Abnormal EKG COPD with cough, not on reg home O2 Mild troponinemia Macrocytosis Tobacco use disorder Alcohol abuse disorder Meth abuse -discussed case with Cardiology. Patient was started on losartan today to get blood pressure under control. Planning for stress test in morning. -SVNs, O2 as needed. Respiratory panel checked to rule out infectious cause of cough. -continue other home meds. -CIWA protocol in case of alcohol withdrawal. -counseled on polysubstance cessation. VTE prophylaxis: SCDs Code Status: Full code Status: Changing to inpatient for > 2 midnight stay for uncontrolled hypertension, need for stress testing. Disposition: Med tele with discharge anticipated tomorrow after stress test if it comes back normal. ____ SUBJECTIVE: Today the patient feels better. Complains of cough. Complains palpitations/racing heart when he takes albuterol. OBJECTIVE: Physical Exam: General: The patient is a male who is alert and in no acute distress. HEENT: normocephalic, extraocular movements intact, conjunctivae clear. Mucous membranes moist. Neck: trachea midline, no visible masses. CV: +S1/S2, RRR, no MRG. Resp: unlabored, CTAB no RR with mild wheezing in right lung peripherally. Abd: soft and nondistended. Musculoskeletal: Normal muscle tone/bulk. Neuro: cranial nerves II - XII grossly intact. Intact gross motor and sensory function. Psych: Appropriate mood and appropriate affect. Skin: No pallor. No petechiae. Heme/lymph: No peripheral edema at bilateral lower extremities. Labs/Imaging/Other Tests: Personally reviewed/interpreted. CTA chest-no PE. +inflammatory changes. EKG-personally interpreted-sinus rhythm, anterior septal ischemia, inferior ischemia, possible lateral ischemia. Prolonged QTC 517. Biatrial enlargement. Objective: Vital Signs Temp Pulse Resp BP Pulse Ox 36.8 C 78 20 147/107 H 93 07/21/18 11:39 07/21/18 11:39 07/21/18 11:39 07/21/18 11:39 07/21/18 11:39 07/20/18 07/21/18 07/22/18 05:59 05:59 05:59 Intake Total 600 Output Total 200 Balance 400 - Time Spent With Patient Time Spent with Patient: greater than 35 minutes Time Spent with Patient: Greater than 35 minutes spent on this patients care, greater than 50% of time spent counseling, educating, and coordinating care regarding the above mentioned plan. ICD10 Worksheet Patient Problems: Problems Problem Status Onset Chest pain Acute Hypertension Acute Chronic obstructive pulmonary disease with acute exacerbation Acute Influenza A Acute
--- NOTE | 2018-07-21 15:23 | ASMTCMCOM ---
CM Note CM Note Notes: Pts case discussed in tx rounds. Pt is a 63 y/o man admitted for chest pain and hypertension. CM met w/ pt and introduced self. Pt reports that he is currently living w/ a roommate in [place], in a trailer home. Pt reports that he was living in [facility] with an ex but that relationship ended and stated that she was a 'psychotic'. Pt reports that he has a trailer home but is unable to move it to another location due to financial constraints. Pt asked how he can get housing. CM informed pt that he can most likely work w/ the [facility] case management team. Pt reported that he cannot stay in the [facility] because he is a sex offender. Pt denied having any etoh abuse. Pt reports that he drinks 'shooters' to help cope w/ pain. Pt does not report it being an issue. Pt does not want any resources at this time. CM did not complete CAGE because he does not identify with having an issue with etoh. CM made a referral to [facility]. Pt will most likely d/c independent when medically stable. No therapies ordered at this time. CM available for changes. Plan: Independent Date Signed: 07/21/2018 03:22 PM Electronically Signed By:JONATHAN Madrigal
[2018-07-21] MEDS ORDERED: PNEUMOCOCCAL 0.5ML VACCINE VIAL (PNEUMOVAX 23) IM ONE (15:47)
[2018-07-22] MEDS: HYDROCHLOROTHIAZIDE 12.5 MG CAP PO SCH (08:06)
[2018-07-22] MEDS: ASPIRIN 81 MG CHEWABLE TAB PO SCH (08:06)
[2018-07-22] MEDS: LOSARTAN POTASSIUM 50 MG TAB PO SCH (08:06)
[2018-07-22] MEDS: ALBUTEROL HFA 200 PUFFS/8.5 GM MDI IH PRN (08:09)
[2018-07-22] MEDS: FLUTICASONE/SALMETER 500/50MCG DISKUS IH SCH (08:13)
[2018-07-22] MEDS ORDERED: REGADENOSON 0.4 MG/5 ML SYR IVP ONE (09:07)
--- NOTE | 2018-07-22 10:04 | PDCARST ---
CAR Stress Test Results Type of Stress Test: Kuldip Protocol Stress testing Indication: Chest discomfort/dyspnea Description of Procedure: After consents were signed, and description of the procedure with the patient, the treadmill stress testing was started. Oxygen, heart rate, blood pressure, and response to stress were all monitored real time. Given reduction in oxygen sat pre testing, 2 liters/min of oxygen was started. Graded exercise stress testing was performed. Impression: Luna Treadmill Score was +4 (intermediate risk CV). No ST/T wave changes were appreciated (moderate to severe artifact was noted). Heart rate to 145 bpm (90% of max predicted for age). Nuclear images are pending Conclusion: Unremarkable ETT. Patient did require supplemental oxygen given baseline oxygen saturations.
[2018-07-22] MEDS: THIAMINE HCL 500 MG in NS 100 ML IV SCH (10:59)
[2018-07-22] MEDS ORDERED: amLODIPine BESYLATE 5 MG TAB PO SCH (13:30)
--- NOTE | 2018-07-22 13:59 | PDCARPN ---
Cardiology Progress Note Chief Complaint: Patient reports short of breath, but feels it improved since yesterday. Assessment/Plan: Assessment: 63-year-old male with significant history of COPD, alcohol use was tobacco, current smoker and history of abuse. Seen on 07/20/2018 for pre-surgical evaluation noted be extremely hypertensive systolic blood pressure 70 abnormal electrocardiogram which showed sinus rhythm with inverted T-waves V1 through V4 suggesting anterior ischemia. Incomplete right bundle. Sent to the emergency department for further evaluation, reporting no history of chest pain or shortness of breath. Noted to have a [place] troponin of 0.041 and a D-dimer 1.16. CTA of chest negative for PE. Cycle troponins trending downward with most recent on 07/21 at 0.038. Echocardiogram done on 07/21/2018 showing mildly reduced LV systolic function with EF of 48% with no wall motion abnormalities, mild concentric LVH with diastolic dysfunction, [id number] MR with reduced RV EF, moderate LA and mild RA enlargement, [id number] MR without mitral valve prolapse mild TR with normal pulmonary pressures. Patient started on med management for hypertension with losartan and hydrochlorothiazide. He has also been aggressively treated for his COPD. 07/22/2018: Patient underwent ETT MPI study, he had poor exercise intolerance, it was only able to go for 4 min, but no significant ST shifts during peak exercise suggesting of ischemia. Luna treadmill score of 4. Reaching peak heart rate of 145 BPM which was 90% of his MPHR. Nucleolar imaging noted decreased LVEF of 34% with suspected inferior wall infarction without evidence of underlying ischemia. Vital signs today show significant improvement from yesterday, with initially this morning at 152/100, and currently 132/85. Patient states he has had no chest pain pressure symptoms suggesting of ischemia. He remains sinus rhythm with no malignant arrhythmias or pauses noted overnight on to continues telemetry. Discussed reduction to EF from echocardiogram in comparison to MPI study with Dr. Kumar, who feels echocardiogram is more accurate in assessing EF and wall motion abnormalities. Plan: 1. Abnormal EKG with indeterminate troponins: Patient's MPI study showing no ischemia, potential old infarction. ETT showed no ST changes suggesting of ischemia. Patient reports no chest pain pressure symptoms suggesting of ischemia. Potential indeterminate troponin and abnormal electrocardiogram due to his LVH and hypertension urgency. Recommend patient continue on aspirin therapy. Would hold beta-agustina due to patient's respiratory status of asthma/ COPD. 2. Cardiomyopathy: EF noted to be mildly reduced at 40%, no ischemia on MPI study. Started on losartan and hydrochlorothiazide. Hesitant to start on beta- agustina due to his COPD/asthma. Will plan on repeating echocardiogram in a few months, after a blood pressure control and on maximum tolerating medication. 3. Hypertension: Blood pressure better controlled with the starting of losartan and hydrochlorothiazide. Will add amlodipine to medication regime at this time. Have recommended patient buy a blood pressure cuff, monitor home BP is on a daily basis, and plan for him to follow up with us in the office. He has been encouraged a low-salt diet. 4. COPD: Patient still oxygen dependent, but has improved respiratory status today. Defer treatment to hospitalist Services. 5. Tobacco abuse: Patient has been encouraged to quit tobacco altogether. 6. Alcohol dependency: Patient reports drinking 5-6 drinks on a daily basis. Has been started on CIWA protocol. Defer to hospital services. Pending on when patient is to be discharge, I have scheduled for him to be followed up in our office in approximately 1 week. 07/22/18 13:59 Subjective: He denies of any chest pain, pressure. He reports shortness of breath has improved from yesterday. Denies of any orthopnea, PND, palpitations, lightheadedness, near-syncope or syncopal events. Reviewed/Discussed With: hospitalist (Dr Mann), other (Dr Kumar) Objective: Vital Signs (8 Hrs) Temp Pulse Resp BP Pulse Ox 07/22/18 11:33 36.7 C 101 H 18 132/85 H 93 07/22/18 08:14 77 14 93 07/22/18 08:06 151/105 H 07/22/18 08:00 36.8 C 78 18 152/100 H 91 L Intake/Output (24 Hrs) 07/21/18 07/22/18 07/23/18 05:59 05:59 05:59 Intake Total 1180 Balance 1180 Intake: Oral (ml) 1180 Other: Number of Voids Toilet 3 Urinal 2 Result Diagrams: 07/20/18 16:05 07/22/18 03:16 - Physical Exam Constitutional: WDWN, no apparent distress Ears, Nose, Mouth, Throat: moist mucous membranes Cardiovascular: regular rate and rhythm, no murmurs, no rubs, pulses symmetric bilat, No jugular vein distention, No carotid bruit Peripheral Pulses: 2+: carotid (R), carotid (L), dorsalis-pedis (R), dorsalis- pedis (L) Respiratory: other (Mild expiratory wheeze, with mild rhonchi which clears with cough. No accessary muscle use, no intercostal muscle retraction noted.) Gastrointestinal: normoactive bowel sounds Skin: warm, no edema Neurologic: AAOx3 Psychiatric: cooperative, interactive, following commands ICD10 Worksheet Patient Problems: Problems Problem Status Onset Chronic obstructive pulmonary disease with acute exacerbation Acute Influenza A Acute Hypertension Acute Chest pain Acute
[2018-07-22 14:42] VITALS: BP 135/85
--- NOTE | 2018-07-22 15:07 | PDDCSUM ---
Discharge Summary Discharge Summary: Diagnosis: Acute chest pain, resolved Accelerated hypertension, resolved Prolonged QT interval Diastolic CHF, grade 1 Systolic CHF with EF 48% Mild LVH Abnormal EKG COPD with cough, not on reg home O2 Mild troponinemia Macrocytosis Tobacco use disorder Alcohol abuse disorder Meth abuse, occasional Hernia Hospital course: The patient evaluated at his System Administrator office for pre-surgical evaluation on 07/20/2018 and sent to the hospital for very high blood pressure, along with chest pain. Patient was followed by Cardiology in the hospital. He was noted to have a mild troponinemia which downtrended. CTA chest was negative for PE. TTE revealed LVEF 48%, mild LVH with diastolic dysfunction, mild-mod MR w/ reduced RV EF, and mod LAE. He underwent exercise stress test which was unable to be continued to maximum exercise efforts because of his poor exercise tolerance secondary to his chronic lung disease. He had no ischemic changes on EKG during the stress test. He was not in an acute COPD exacerbation. He did require 1-2 L O2 during hospitalization for COPD, but declined home O2 because he is homeless most of the time and unable to deal with the logistics of carrying around O2. His blood pressure medication was adjusted. He was counseled on smoking cessation. He was recommended to make sure that his blood pressure is better controlled before scheduling his hernia surgery. He was discharged to home in stable condition. Follow up: PCP in 1 week. System Administrator on 07/30. Gen Surg after hypertension is controlled. Meds: new -amlodipine 5mg po daily. Aspirin 81mg po daily. HCTZ 12.5mg po daily. Losartan 50mg po daily. Special instructions: Received [id number] vaccine. Return to ED for worsening/concerning symptoms.
--- NOTE | 2018-07-22 15:22 | PDMN ---
Medical Necessity Medical necessity: Change to IP, as of 07/21/18, per MD & MCG M-197; los >2 mn for ongoing management of persistent uncontrolled hypertension; requiring Cardiology consult, further workup/cardiac monitoring & med management; hx COPD , homelessness, polysubstance abuse
--- NOTE | 2018-07-22 16:16 | ASDISCHSUM ---
Discharge Information Plan Status:Home with No Needs Medically Cleared to Leave:07/22/2018 Discharge Date:07/22/2018 CM D/C Disposition:Home, Routine, Self-Care ADT D/C Disposition:Home, Routine, Self-Care Projected Discharge Date:07/22/2018 Transportation at D/C: Discharge Delay Reason: Follow-Up Date:07/22/2018 Discharge Slot: Final Diagnosis: Placement Information Patient Contact Information Contact Name:JEREMY Relationship:Kari Address: Work Phone: City: [facility] Phone: State/[place] Code: Email: Financial Information Financial Class:Medicaid Primary Plan Desc:[employer] [place] Primary Plan Number:[id number] Secondary Plan Desc: Secondary Plan Number: Assessment Information LACE LACE Length of stay for Answers: 1 day current admission Acuity / Level of Answers: Yes Care: Did the patient have an inpatient admission? Comorbidities - select Answers: Chronic pulmonary disease all that apply Opioid dependence / Chronic pain Other Notes: HTN # of Emergency department Answers: 1-2 visits in the last 6 months Social determinants Answers: History of substance abuse (ETOH, street drugs, prescription drugs, etc.) Score: 15 Date Signed: 07/22/2018 04:14 PM Electronically Signed By:Laury Hathaway RN [facility] Progress Note CM Note CM Note Notes: Pts case discussed in tx rounds. Pt is a 63 y/o man admitted for chest pain and hypertension. CM met w/ pt and introduced self. Pt reports that he is currently living w/ a roommate in [place], in a trailer home. Pt [place] [facility] [place] [facility] [place] [place] but that relationship ended and stated that she was a 'psychotic'. Pt reports that he has a trailer home but is unable to move it to another location due to financial constraints. Pt asked how he can get housing. CM informed pt that he can most likely work w/ the [facility] case management team. Pt reported that he cannot stay in the long term because he is a sex offender. Pt denied having any etoh abuse. Pt reports that he drinks 'shooters' to help cope w/ pain. Pt does not report it being an issue. Pt does not want any resources at this time. CM did not complete [facility] because he does not identify with having an issue with etoh. CM made a referral to [facility]. Pt will most likely d/c independent when medically stable. No therapies ordered at this time. CM available for changes. Plan: Independent Date Signed: 07/21/2018 03:22 PM Electronically Signed By:JONATHAN Madrigal Case Management Discharge Plan Note Case Management Discharge Discharge Order Complete? Answers: Yes Patient to Obtain Answers: Independently Medications Discharge Comments Notes: 07/22/2018 Case Management Note Pt to discharge independent with follow up as directed. PCP is Dr. Jaqui Jacobs. Date Signed: 07/22/2018 04:15 PM Electronically Signed By:Laury Hathaway RN Intervention Information
[2018-07-23] MEDS ORDERED: THIAMINE HCL 100 MG TAB PO SCH (09:00)
== END 2018-07-22 16:42 | disposition home or self-care (01) | DRG 199 ==
LOC: FSGY 13:39 → EDSTATUS 15:00 → F2W 16:48 → OBSVTOIN 07-21 13:19
PROVIDERS: ADMIT Internal Medicine; ATTEND Internal Medicine
DX: I10 Essential (primary) hypertension (principal); R07.9 Chest pain, unspecified; I45.81 Long QT syndrome; Z53.09 Procedure and treatment not carried out because of other contraindication; K40.90 Unilateral inguinal hernia, without obstruction or gangrene, not specified as recurrent; R94.31 Abnormal electrocardiogram [ECG] [EKG]; J44.9 Chronic obstructive pulmonary disease, unspecified; F10.20 Alcohol dependence, uncomplicated; I50.40 Unspecified combined systolic (congestive) and diastolic (congestive) heart failure; I42.9 Cardiomyopathy, unspecified; Z72.0 Tobacco use; Z59.0 Homelessness; Z23 Encounter for immunization
CPT/HCPCS: 80305; 84484-ER; A9500; G0009; G0378; J2785; J3411; Q9967